=== PATIENT | male | born 1945 | race American Indian/Alaskan Native ===

== ENCOUNTER 2016-06-02 08:18 | Day surgery (SDC) | payer MEDICARE, MEDICAID ==
[2016-06-02] MEDS ORDERED: Cataract Ophth Solution EYELF ONE (08:30)
[2016-06-02] MEDS ORDERED: Sodium Chloride 0.9% 10 ML Syringe FLUSH PRN (08:30)
[2016-06-02] MEDS ORDERED: Cyclopentolate 2% Ophth Soln 5 ML Bottle EYELF ONE ×2 (08:30→10:16)
[2016-06-02] MEDS ORDERED: Lidocaine 4% 5 ML Amp EYELF ONE ×2 (08:30→10:16)
[2016-06-02] MEDS ORDERED: Moxifloxacin 0.5% Ophth Soln 3 ML Bottle EYELF ONE ×2 (08:30→10:18)
[2016-06-02] MEDS ORDERED: Povidone-Iodine 5% Sterile Ophth Soln 30 ML Bottle EYELF ONE (10:17)
[2016-06-02] MEDS ORDERED: EPINEPHrine 1:1000 1 MG/ML SDV ONE (10:17)
[2016-06-02] MEDS ORDERED: Balanced Salt Solution Ophth Irrig 500 ML Bottle IOCULAR ONE (10:18)
[2016-06-02] MEDS ORDERED: prednisoLONE Acetate 1% Ophth Susp 5 ML Bottle EYELF ONE (10:19)
[2016-06-02] MEDS ORDERED: Lidocaine 1% 30 ML SDV ONE (10:19)
--- NOTE | 2016-06-02 10:34 | PCM.OPNOTE ---
- General Post-Op/Procedure Note Date of Surgery/Procedure: 06/02/16 Operative Procedure(s): Cataract extraction with intraocular lens implant, left eye Findings: As above Pre Op Diagnosis: Cataract left eye Post-Op Diagnosis: Same Anesthesia Technique: MAC Primary Surgeon: Jose Frost Pathology: None EBL in mLs: 0 Complications: None Condition: Good Free Text/Narrative:: PROCEDURE: After the risks and benefits of the procedure were explained informed consent was obtained from the patient and the patient was taken to the operating room. The patient was given topical Lidocaine 4% drops in the left eye. The patient was then prepped and draped in the sterile [facility] fashion. A wire lid speculum was placed in the left eye. A clear cornea temporal approach was used. A 75[address] blade was used to make a paracentesis site around 5:00. Preservative-free Lidocaine 1% was injected intracamerally. Viscoelastic was placed in the anterior chamber. A 2.65 mm keratome blade was used to make a clear corneal incision around 3:00. A cystotome needle and Utrata forceps were used to perform continuous curvilinear capsulorhexis. Balanced Salt Solution was used to perform hydrodissection and hydrodelineation. The lens nucleus was removed using the divide and conquer phacoemulsification technique. Cumulative dissipated energy was 6.57. Remaining cortex was removed using irrigation- aspiration. Viscoelastic was placed in the capsular bag. PCBOO 18.5 diopter lens was then placed in the capsular bag. Remaining viscoelastic was removed using irrigation-aspiration. The lens was well centered in the capsular bag. The paracentesis and corneal incision were found to be water-tight. The patient was given topical Prednisolone and Vigamox drops. The speculum was removed and a shield was placed over the left eye. The patient was taken to recovery in stable condition. I certify that I was present for and performed the entire operative procedure. Jose Frost M.D.
[2016-06-02 11:25] VITALS: BP 133/86
[2016-06-02] MEDS ORDERED: Midazolam 1 MG/ML 2 ML SDV IV ONE (13:06)
== END 2016-06-02 11:30 | disposition home or self-care (01) ==
LOC: DL.SDS 08:18
PROVIDERS: ATTEND Ophthalmology
DX: H26.9 Unspecified cataract (principal); I10 Essential (primary) hypertension; E11.42 Type 2 diabetes mellitus with diabetic polyneuropathy; I25.10 Atherosclerotic heart disease of native coronary artery without angina pectoris; F32.9 Major depressive disorder, single episode, unspecified; I73.9 Peripheral vascular disease, unspecified; E78.5 Hyperlipidemia, unspecified; Z98.890 Other specified postprocedural states
CPT/HCPCS: 66984; A9270; J0171; J7050; 00142; J2250; V2632

== ENCOUNTER 2020-07-25 06:24 | Day surgery (SDC) | payer MEDICARE, MEDICAID ==
[~2020-07-25 06:24] MED LIST: Midazolam 1 MG/ML 2 ML SDV ONE; fentaNYL 100 MCG/2 ML SDV ONE
[2020-07-25] MEDS ORDERED: Midazolam 1 MG/ML 2 ML SDV IV ONE ×4 (06:25→08:13)
[2020-07-25] MEDS ORDERED: fentaNYL 100 MCG/2 ML SDV IV ONE ×3 (06:25→08:03)
[2020-07-25] MEDS ORDERED: Dextrose 5%-0.45% NaCl 1,000 ML IV SCH (07:00)
[2020-07-25 11:04] VITALS: BP 109/66; PULSE 60
--- NOTE | 2020-07-25 13:17 | OR ---
DATE: 07/25/2020 PROCEDURES: Total colonoscopy, terminal ileoscopy, narrow-band imaging, and multiple pinch biopsies. INSTRUMENT USED: PCF-H190DL Olympus video colonoscope. PREMEDICATIONS: Fentanyl 100 mcg intravenous, Versed 2.5 mg intravenous, nasal O2 cannula. The procedure was done under pulse oximetry, BP recording, and phototypesetting equipment monitor. INDICATION: The patient is diabetic, on multiple medications, with chronic diarrhea and anemia. Colonoscopic examination is done for detection of any polypoid lesions and removal, biopsies to be obtained for any evidence of microscopic colitis, endoscopic hemostasis therapy if needed. DESCRIPTION OF PROCEDURE: Initial rectal exam was unremarkable. Rigid anoscopy was normal. The colonoscope was passed with ease up to and beyond the ileocecal junction to visualize normal-appearing terminal ileum, NBI views were obtained, photographs were taken, multiple pinch biopsies were obtained and sent for histopathology. Photographs were also taken of the normal-appearing cecum. No bleeding was noted from any of the visualized areas at the commencement of the examination. The bowel preparation was found to be inadequate, Cook score 1 in all the areas, total score 3. No stricture. No vascular ectasia. No large isolated ulcerations seen. No evidence of diffuse inflammatory bowel disease in the form of friability, contact bleeding, or ulcerations. No polyp or tumor mass identified. Probing the proximal sides of folds and flexures using adequate distention and clearing up the stool material, withdrawal of the scope was made. Multiple pinch biopsies were obtained from the normal-appearing mucosa of the mid transverse colon, mid descending colon, and rectosigmoid, and sent for any histopathologic evidence of microscopic colitis. No bleeding was noted from any of the visualized areas at the completion of examination. IMPRESSION: Normal study. The patient tolerated the procedure well. [facility] /[id number]
--- NOTE | 2020-07-25 13:55 | LETTER ---
07/25/2020 RE: MAJOR BRENNAN : 1945 Evelyn Hooper NP [facility] [address] [place] [address] Dear Ms. Hooper: Mr. Major Brennan had colonoscopic examination done this morning and he tolerated the procedure well. I, herewith, send a copy of the endoscopy note and photographs for your review. Thank you. Sincerely, [facility] /[id number]
== END 2020-07-25 10:42 | disposition home or self-care (01) ==
LOC: DL.ENDO 06:24
PROVIDERS: ATTEND Internal Medicine Gastroenterology
DX: K52.9 Noninfective gastroenteritis and colitis, unspecified (principal); D64.9 Anemia, unspecified; E11.9 Type 2 diabetes mellitus without complications; E66.09 Other obesity due to excess calories; I10 Essential (primary) hypertension; E78.5 Hyperlipidemia, unspecified; K21.9 Gastro-esophageal reflux disease without esophagitis; I48.91 Unspecified atrial fibrillation; Z95.0 Presence of cardiac pacemaker; Z88.8 Allergy status to other drugs, medicaments and biological substances; Z88.5 Allergy status to narcotic agent; Z68.30 Body mass index [BMI] 30.0-30.9, adult; R19.7 Diarrhea, unspecified
CPT/HCPCS: 88305; J2250; J3010; J7042

== ENCOUNTER 2020-09-13 05:24 | Day surgery (SDC) | payer MEDICARE, MEDICAID ==
[2020-09-13] MEDS ORDERED: Midazolam 1 MG/ML 2 ML SDV IV ONE ×3 (05:25→07:12)
[2020-09-13] MEDS ORDERED: fentaNYL 100 MCG/2 ML SDV IV ONE ×3 (05:25→07:10)
[2020-09-13] MEDS ORDERED: Dextrose 5%-0.45% NaCl 1,000 ML IV SCH (06:00)
[2020-09-13] MEDS ORDERED: Sodium Chloride 0.9% 10 ML Syringe FLUSH PRN (06:00)
[2020-09-13 09:39] VITALS: BP 132/88; PULSE 74
--- NOTE | 2020-09-13 12:37 | OR ---
DATE: 09/13/2020 PROCEDURE: Total colonoscopy. INSTRUMENT USED: PCF-H190DL Olympus video colonoscope. PREMEDICATIONS: Fentanyl 100 mcg intravenous, Versed 2 mg intravenous, nasal O2 cannula. The procedure was done under pulse oximetry, BP recording, and uniform designer. INDICATIONS: The patient with Hemoccult positive stools. Previous inadequate study due to poor bowel preparation. Colonoscopic examination is done for detection of any polypoid lesions and removal, endoscopic hemostasis therapy if needed. DESCRIPTION OF PROCEDURE: Initial rectal exam was unremarkable. Rigid anoscopy was normal. The colonoscope was passed with ease. Scattered diverticula were noted in the distal left colon along with deformity. The scope was passed with ease up to the ileocecal area. Photographs were taken of the normal-appearing cecum identified by appendiceal orifice and double-bulged ileocecal folds. No bleeding was noted from any of the visualized areas at the commencement of the examination. There was solid as well as liquid fecal material that had to be aspirated. The examination was inadequate due to the presence of some amount of stools that could not be aspirated clear, Mosca scale 2 in all the regions, total scope 6. No stricture. No vascular ectasia. No large isolated ulcerations seen. No evidence of diffuse inflammatory bowel disease in the form of friability, contact bleeding, or ulcerations. No polyp or tumor mass identified. Probing the proximal sides of folds and flexures using adequate distention and clearing up the stool material, withdrawal of the scope was made, cecum to rectum time over 6 minutes. No bleeding was noted from any of the visualized areas at the completion of examination. IMPRESSION: Diverticulosis. The patient tolerated the procedure well. [facility] /[id number]
--- NOTE | 2020-09-13 12:58 | LETTER ---
09/13/2020 RE: LESLEY BRENNAN : 1945 Evelyn Jones Sandie, [employer] [address] [facility] [address] Dear Ms. Hooper: Mr. Lesley Brennan had colonoscopic examination done this morning and he tolerated the procedure well. In spite of 2-day bowel preparation, he still had some amount of stools limiting visualization of few areas,the patient be considered for colonoscopy with 2-day bowel preparation after a year and earlier if any bowel difficulties. I herewith send a copy of the endoscopy note and photographs for your review. Thank you. Sincerely, [facility] /[id number]
--- NOTE | 2020-09-17 11:17 | LETTER ---
09/17/2020 RE: LESLEY BRENNAN GENE : 1945 Evelyn Hooper, [employer] [address] [facility] [address] Dear Kathrin J[place]nee: Mr. Lesley Brennan had colonoscopic examination done and he tolerated the procedure well. I herewith send a copy of the endoscopy note and photographs for your review. Thank you. Sincerely, [facility] /[id number]
== END 2020-09-13 09:38 | disposition home or self-care (01) ==
LOC: DL.ENDO 05:24
PROVIDERS: ATTEND Internal Medicine Gastroenterology
DX: K57.30 Diverticulosis of large intestine without perforation or abscess without bleeding (principal); E66.09 Other obesity due to excess calories; E11.9 Type 2 diabetes mellitus without complications; I10 Essential (primary) hypertension; E78.5 Hyperlipidemia, unspecified; I48.91 Unspecified atrial fibrillation; Z95.0 Presence of cardiac pacemaker; Z68.31 Body mass index [BMI] 31.0-31.9, adult
CPT/HCPCS: 45378; 82947; J2250; J3010; J7042

== ENCOUNTER 2022-05-26 05:45 | Day surgery (SDC) | payer MEDICARE, MEDICAID ==
[~2022-05-26 05:45] MED LIST changes: -Midazolam 1 MG/ML 2 ML SDV ONE; +Sodium Chloride 0.9% 10 ML Syringe FLUSH PRN; +Sodium Chloride 0.9% 10 ML Syringe FLUSH SCH; -fentaNYL 100 MCG/2 ML SDV ONE
[2022-05-26] MEDS ORDERED: Midazolam 1 MG/ML 2 ML SDV IV ONE ×4 (05:46→07:40)
[2022-05-26] MEDS ORDERED: fentaNYL 100 MCG/2 ML SDV IV ONE ×3 (05:46→07:34)
[2022-05-26] MEDS ORDERED: Dextrose 5%-0.45% NaCl 1,000 ML IV SCH (06:00)
[2022-05-26] MEDS ORDERED: Midazolam 1 MG/ML 2 ML SDV ONE (07:20)
[2022-05-26] MEDS ORDERED: fentaNYL 100 MCG/2 ML SDV ONE (07:20)
[2022-05-26 09:37] VITALS: BP 128/74; PULSE 59
== END 2022-05-26 09:45 | disposition home or self-care (01) ==
LOC: DL.ENDO 05:45
PROVIDERS: ATTEND Internal Medicine Gastroenterology
DX: R19.7 Diarrhea, unspecified (principal); K64.8 Other hemorrhoids; I10 Essential (primary) hypertension; E78.5 Hyperlipidemia, unspecified; E11.9 Type 2 diabetes mellitus without complications; I48.91 Unspecified atrial fibrillation; F32.A Depression, unspecified; K21.9 Gastro-esophageal reflux disease without esophagitis; E66.09 Other obesity due to excess calories; Z79.01 Long term (current) use of anticoagulants; Z79.4 Long term (current) use of insulin; Z68.31 Body mass index [BMI] 31.0-31.9, adult
CPT/HCPCS: J2250; J3010; J7042

== ENCOUNTER 2022-10-12 10:54 | Emergency (ER) | payer MEDICARE, MEDICAID ==
[2022-10-12] MEDS: Sodium Chloride 0.9% 10 ML Syringe FLUSH PRN (11:10)
[2022-10-12 11:14] LABS: BASOPHILS PERCENT AUTO 0.1 % (0.0-1.0); EOSINOPHILS PERCENT AUTO 2.4 % (1.0-3.0); HEMATOCRIT 37.1 % (40.0-54.0); HEMOGLOBIN 12.4 g/dL (14.0-18.0); LYMPHOCYTES PERCENT AUTO 13.3 % (20.5-50.1); MEAN CORPUSCULAR HEMOGLOBIN 30.5 pg (27.0-34.0); MEAN CORPUSCULAR HGB CONC 33.4 g/dL (33.0-35.0); MEAN CORPUSCULAR VOLUME 91.2 fL (80-100); NEUTROPHILS PERCENT AUTO 77.2 % (42.2-75.2); PLATELET COUNT,PLT 188 10^3/uL (150-450); RED BLOOD CELL COUNT 4.07 10^6/uL (4.6-6.2)
[2022-10-12] MEDS: Tranexamic Acid 1,000 MG/10 ML Vial TOP ONE (11:16)
[2022-10-12] MEDS: EPINEPHrine Nasal Soln 30 MG/30 ML Bottle NAS ONE (11:16)
[2022-10-12] MEDS: Oxymetazoline 0.05% Nasal Spray 30 ML Bottle NAS ONE (11:19)
[2022-10-12 11:29] VITALS: BP 108/64; PULSE 87
[2022-10-12 11:34] LABS: INR 1.1 (0.9-1.2); PROTHROMBIN TIME 11.6 SEC (9.0-12.0); PTT,PARTIAL THROMBOPLSTIN TIME 31.4 SEC (22.0-34.0)
[2022-10-12 13:06] LABS: A/G RATIO 0.9; ALBUMIN 3.5 g/dL (3.4-5.0); ANION GAP 11.7 mEq/L (7-13); BILIRUBIN TOTAL 0.5 mg/dL (0.2-1.0); BUN/CREATININE RATIO 16.8 (No establ ref range); CREATININE 1.13 mg/dL (0.70-1.30); EST CRCL DRUG DOSING (CG) 62.85 mL/min; POTASSIUM,K 4.7 mmol/L (3.5-5.1); PROTEIN TOTAL,TP 7.5 g/dL (6.4-8.2)
== END 2022-10-12 14:11 | disposition home or self-care (01) ==
LOC: DL.ED 10:54
DX: S02.2XXA Fracture of nasal bones, initial encounter for closed fracture (principal); R04.0 Epistaxis; I48.91 Unspecified atrial fibrillation; E78.00 Pure hypercholesterolemia, unspecified; I10 Essential (primary) hypertension; K21.9 Gastro-esophageal reflux disease without esophagitis; M19.90 Unspecified osteoarthritis, unspecified site; E11.40 Type 2 diabetes mellitus with diabetic neuropathy, unspecified; E66.9 Obesity, unspecified; E03.9 Hypothyroidism, unspecified; Z86.16 Personal history of COVID-19; Z79.82 Long term (current) use of aspirin; Z79.4 Long term (current) use of insulin; Z79.899 Other long term (current) drug therapy; Z79.84 Long term (current) use of oral hypoglycemic drugs; Z79.02 Long term (current) use of antithrombotics/antiplatelets; Z68.30 Body mass index [BMI] 30.0-30.9, adult; X58.XXXA Exposure to other specified factors, initial encounter
CPT/HCPCS: 30901; 30903; 36415; 70450; 70486; 80053; 85025; 85610; 85730; 86850; 86900; 86901; 99284; A9270-GY; J3490

== ENCOUNTER 2022-10-16 10:22 | Emergency (ER) | payer MEDICARE, MEDICAID ==
[2022-10-16 10:36] VITALS: BP 112/82; PULSE 89
== END 2022-10-16 11:01 | disposition home or self-care (01) ==
LOC: DL.ED 10:22
DX: R04.0 Epistaxis (principal); I10 Essential (primary) hypertension; E11.9 Type 2 diabetes mellitus without complications; I48.91 Unspecified atrial fibrillation; E78.00 Pure hypercholesterolemia, unspecified; E03.9 Hypothyroidism, unspecified; K21.9 Gastro-esophageal reflux disease without esophagitis; Z79.4 Long term (current) use of insulin; Z79.84 Long term (current) use of oral hypoglycemic drugs; E66.9 Obesity, unspecified; Z68.29 Body mass index [BMI] 29.0-29.9, adult; Z88.6 Allergy status to analgesic agent; Z88.5 Allergy status to narcotic agent; Z88.8 Allergy status to other drugs, medicaments and biological substances
CPT/HCPCS: 99282

== ENCOUNTER 2024-07-13 13:20 | Emergency (ER) | payer MEDICARE, MEDICAID ==
[2024-07-13] MEDS ORDERED: Sodium Chloride 0.9% 10 ML Syringe FLUSH PRN (13:53)
[2024-07-13 14:07] LABS: BASOPHILS PERCENT AUTO 0.1 % (0.0-1.0); EOSINOPHILS PERCENT AUTO 0.1 % (1.0-3.0); HEMATOCRIT 33.9 % (40.0-54.0); LYMPHOCYTES PERCENT AUTO 8.8 % (20.5-50.1); MEAN CORPUSCULAR HEMOGLOBIN 29.8 pg (27.0-34.0); MEAN CORPUSCULAR HGB CONC 32.4 g/dL (33.0-35.0); MEAN CORPUSCULAR VOLUME 91.9 fL (80-100); PLATELET COUNT,PLT 177 10^3/uL (150-450); RED BLOOD CELL COUNT 3.69 10^6/uL (4.6-6.2); WHITE BLOOD CELL COUNT,WBC 10.1 10^3/uL (5.0-10.0)
[2024-07-13] MEDS: Sodium Chloride 0.9% 1,000 ML IV ONE (14:19)
[2024-07-13 14:28] LABS: ALBUMIN 3.3 g/dL (3.4-5.0); ANION GAP 11.6 mEq/L (7-13); BUN/CREATININE RATIO 23.9 (No establ ref range); CALCIUM 9.2 mg/dL (8.5-10.1); CREATININE 1.55 mg/dL (0.70-1.30); EST CRCL DRUG DOSING (CG) 44.39 mL/min; MAGNESIUM 1.3 mg/dL (1.8-2.4); POTASSIUM,K 4.6 mmol/L (3.5-5.1); PROTEIN TOTAL,TP 7.9 g/dL (6.4-8.2)
[2024-07-13 14:34] LABS: A/G RATIO 0.72
[2024-07-13 14:51] VITALS: BP 118/66; PULSE 67
== END 2024-07-13 15:10 | disposition home or self-care (01) ==
LOC: DL.ED 13:20
DX: S80.01XA Contusion of right knee, initial encounter (principal); R55 Syncope and collapse; I10 Essential (primary) hypertension; E78.00 Pure hypercholesterolemia, unspecified; I48.91 Unspecified atrial fibrillation; E11.42 Type 2 diabetes mellitus with diabetic polyneuropathy; E03.9 Hypothyroidism, unspecified; E66.9 Obesity, unspecified; K21.9 Gastro-esophageal reflux disease without esophagitis; Z86.16 Personal history of COVID-19; Z79.82 Long term (current) use of aspirin; Z79.899 Other long term (current) drug therapy; Z79.84 Long term (current) use of oral hypoglycemic drugs; Z79.01 Long term (current) use of anticoagulants; Z79.4 Long term (current) use of insulin; Z88.8 Allergy status to other drugs, medicaments and biological substances; Z88.5 Allergy status to narcotic agent; Z95.0 Presence of cardiac pacemaker; Z68.29 Body mass index [BMI] 29.0-29.9, adult; W18.30XA Fall on same level, unspecified, initial encounter
CPT/HCPCS: 36415; 70450; 73562; 80053; 83735; 85025; 93010; 99284; 99285; J7030